=== PATIENT | male | born 1955 | race Caucasian/White ===

== ENCOUNTER → 2023-11-22 08:58 | Outpatient (REF) | payer MEDICARE, OTHER, SELFPAY | LOC: DHCBC MAIN 08:58 | PROVIDERS: ATTENDING PHYSICIAN Internal Medicine; FAMILY PHYSICIAN Internal Medicine | DX: Z95.2 Presence of prosthetic heart valve (principal); I77.810 Thoracic aortic ectasia; I25.10 Atherosclerotic heart disease of native coronary artery without angina pectoris; I31.39 Other pericardial effusion (noninflammatory) | CPT/HCPCS: 93306 ==

== ENCOUNTER → 2024-01-11 09:48 | Outpatient (REF) | payer MEDICARE, OTHER, SELFPAY ==
[2024-01-11 11:05] LABS: Platelet Count 120 10^3/uL (130-400)
== END ==
LOC: REG 09:48
PROVIDERS: ATTENDING PHYSICIAN Internal Medicine Hematology & Oncology; FAMILY PHYSICIAN Internal Medicine
DX: D69.6 Thrombocytopenia, unspecified (principal)
CPT/HCPCS: 36415; 85049

== ENCOUNTER → 2024-01-14 08:40 | Outpatient (REF) | payer MEDICARE, OTHER, SELFPAY | LOC: RAD 08:40 | PROVIDERS: ATTENDING PHYSICIAN Internal Medicine Hematology & Oncology | DX: D69.6 Thrombocytopenia, unspecified (principal) | CPT/HCPCS: 76700 ==

== ENCOUNTER 2024-02-24 10:38 | Emergency (ER) | payer MEDICARE, OTHER, SELFPAY ==
[2024-02-24 10:52] VITALS: BP 120/84
--- NOTE | 2024-02-24 12:27 | ED.GENMED ---
History of Present Illness
General
Chief Complaint: Male Genito-Urinary Symptoms
Source: patient
Exam Limitations: none
Time Seen by Provider: 02/24/24 11:48
Nursing documentation reviewed up to this point in time: agreed with
Travel History
Have you had any contact with someone who has COVID-19?: No
Do you have any symptoms of coronavirus? Fever > 100 degrees, chills, cough, shortness of breath, sore throat, loss of taste or smell, muscle aches, or headache?: No
History of Present Illness
History of Present Illness:
Patient with history of erectile dysfunction, presents to ED secondary to sudden onset of bruising noted on top of his penis, after he unattached penile pump, which was recommended by his urologist recently, this morning. Patient unsure if he did
not deflate enough prior to removal of the pump. Denies significant pain. Denies bleeding. Denies difficulty with urination. Denies direct trauma. Denies previous history of similar symptoms.
Past History
Past History
ED Past Medical History: HTN, Hypercholesterolemia and Other (Vertigo, Migraines, endocarditis)
ED Past Surgical History: None
Social History
Tobacco: Non-smoker
Alcohol: Occasional
Personal:
Living: with family
Review of Systems
Review of Systems
Allergies reviewed?: Yes
All Other Systems: ROS reviewed and negative except as documented in HPI and ROS
Constitutional: Reports no symptoms
ABD/GI: Reports no symptoms
: Reports other (penile bruising); Denies difficulty voiding
Musculoskeletal: Reports no symptoms
Skin: Reports no symptoms
Neurological: Reports no symptoms
Phy Exam
Physical Exam
Physical Exam:
Physical Exam
General: no apparent distress, not acutely ill. afebrile
Head: nc/at. eomi
Neck: supple. no meningeal signs.
Abdomen: normal bowel sounds. not tender.
: an approx 1cm diameter hematoma noted over dorsal aspect of penile shaft, without tenderness/bleeding.
Neuro: alert and oriented. no focal neurological deficits
Skin: no rash
Psychiatric: well kept. interactive and cooperative
Extremities: no edema. no calf tenderness.
Course
Vital Signs
Initial and Last Documented VS:
Initial Vital Signs
Temp Pulse Resp BP Pulse Ox
98.0 F 77 18 120/84 98
02/24/24 10:52 02/24/24 10:52 02/24/24 10:52 02/24/24 10:52 02/24/24 10:52
Last Documented Vital Signs
Temp Pulse Resp BP Pulse Ox
98.0 F 77 18 120/84 98
02/24/24 10:52 02/24/24 10:52 02/24/24 10:52 02/24/24 10:52 02/24/24 10:52
MDM/Problems Addressed
MDM/Problems Addressed:
Discussed with oncall urologist, , who feels that patient can be discharged home, with outpatient consultation with his primary urologist, Dr. Santacruz, within 1 to 2 weeks. Advised that patient does not utilize penile pump until
reevaluation. Patient otherwise is afebrile and appears comfortable at time of discharge. Patient expresses understanding at time of discharge.
*Critical Care Note
Total Time (30-74mins, 75-104mins- exclusive of procedures): Not Applicable
ED Attending Note
-
Portions of this chart may have been created with voice recognition software.� Occasional wrong word or��sound alike� substitutions may have occurred due to the inherent limitations of voice recognition software.
Discharge Plan
Departure
Patient Disposition: Home (Routine Discharge)
Date of Disposition: 02/24/24
Time of Disposition: 12:27
Patient with high blood pressure during this ER visit?: Yes
Discharge Problem:
Contusion of penis
Instructions: Contusion
Prescriptions:
No Action
sumatriptan succinate 50 MG tablet
100 mg PO PRN PRN (Reason: Migraines)
Patient Comments:
not taken in 5 years.
atorvastatin 10 MG tablet
20 mg PO Q48H
meclizine 25 MG tablet
12.5 mg PO TID PRN (Reason: MIGRAINE)
Patient Comments:
pt states he hasn't taken in 3 years
aspirin 81 MG tablet,chewable
81 mg PO Q48H
multivitamin 1 EACH tablet
1 ea PO DAILY
fluticasone propionate 1 SPRAY spray,suspension
2 spray intranasal HS
Vitamin D3 Complete 1 EACH tablet
1 ea PO DAILY
Lupron Depot
1 dose IM [id number]
acetazolamide 250 mg Tablet
375 mg PO DAILY
vitamin B complex Capsule
1 cap PO DAILY
cranberry 450 mg Tablet
450 mg PO BID
Gas-X
1 tab PO PRN PRN (Reason: gas)
Metamucil
3 tsp PO DAILY
potassium chloride [Klor-Con M20] 20 mEq Tablet,Er Particles/Crystals
10 meq PO DAILY Qty: 5 2RF
furosemide 40 mg Tablet
20 mg PO DAILY Qty: 5 2RF
sennosides-docusate sodium [Senna Plus] 8.6-50 mg Tablet
1 tab PO Q12 Qty: 15 1RF
pantoprazole 40 mg Tablet,Delayed Release (Dr/Ec)
40 mg PO DAILY Qty: 30 0RF
metoprolol tartrate 25 mg Tablet
25 mg PO BID Qty: 60 2RF
acetaminophen 325 mg Tablet
650 mg PO Q4HPRN PRN (Reason: mild pain,headache,temp >101F ) Qty: 0 0RF
tramadol 50 mg Tablet
50 mg PO Q8HPRN PRN (Reason: moderate to severe pain) Qty: 10 0RF
amlodipine [Norvasc] 5 MG tablet
5 mg PO DAILY Qty: 30 0RF
warfarin 2 mg tablet
2 mg PO DAILY Qty: 20 2RF
Rx Instructions:
take as instructed based on PT/INR after labs drawn
warfarin 1 mg tablet
1 mg PO DAILY Qty: 30 2RF
Rx Instructions:
take as instructed after PT/INR resulted
Referrals:
Frances Lamb MD [Family Provider] -
Murphy Santacruz MD [Active] -
Activity Restrictions/Additional Instructions:
As discussed, please follow-up with your urologist for reevaluation in 1 to 2 weeks.
Interventions
Interventions:
ED- Fall Risk Assessment Last Done: 02/24/24 12:41
*ED COVID-19 Vaccine History Last Done: 02/24/24 10:52
*Nursing Disposition Last Done: 02/24/24 12:47
ED-Male Genitourinary Assessment Last Done: 02/24/24 12:40
Discharge Date and Time
Discharge Date/Time: 02/24/24 12:48
Print Language: KAZAKH
== END 2024-02-24 12:48 | disposition home or self-care (01) ==
LOC: EMR 10:38
PROVIDERS: EMERGENCY PHYSICIAN Emergency Medicine; FAMILY PHYSICIAN Internal Medicine
DX: S30.21XA Contusion of penis, initial encounter (principal); X58.XXXA Exposure to other specified factors, initial encounter; N52.9 Male erectile dysfunction, unspecified; I10 Essential (primary) hypertension; E78.00 Pure hypercholesterolemia, unspecified
CPT/HCPCS: 99282

== ENCOUNTER 2024-05-24 07:47 | Emergency (ER) | payer MEDICARE, OTHER, SELFPAY ==
[2024-05-24 07:51] VITALS: BP 169/93
[2024-05-24 08:03] VITALS: BMI 27.1
--- NOTE | 2024-05-24 08:20 | ED.GENMED ---
History of Present Illness
General
Chief Complaint: Chest Pain
Time Seen by Provider: 05/24/24 08:02
History of Present Illness
History of Present Illness:
Patient presents to the emergency department with left-sided shoulder pain. Notes that he has been working out frequently at the gym. He is unsure if this is related to his weightlifting sessions. Pain is in the left upper chest and left
shoulder. It is not exertional. He sometimes has tingling that goes down into the left arm. Note symptoms started last after a difficult treadmill session. Denies any dyspnea. Denies any leg swelling. Denies any abdominal pain or back
pain. Pain is worse with palpation
Past History
Past History
ED Past Medical History: HTN, Hypercholesterolemia and Other (Vertigo, Migraines, endocarditis)
ED Past Surgical History: None
Social History
Tobacco: Non-smoker
Alcohol: Occasional
Personal:
Living: with family
Phy Exam
Physical Exam
Physical Exam:
GENERAL APPEARANCE: NAD, well developed/ well nourished
EYES lids/conjunctiva normal
EARS/NOSE/THROAT Mucous membranes moist
HEAD/NECK normocephalic atraumatic, neck is supple.
RESPIRATORY respiratory effort normal, speaks in full sentences, no accessory muscle use. Lungs clear to auscultation without rhonchi, wheezes, rales
CARDIAC Regular rate and rhythm, no edema.
ABDOMINAL Soft, ND/NT. No pulsatile masses on exam
MUSCLES/EXTREMITIES No abnormal range of motion, no swelling. Tenderness to palpation at left anterior shoulder. Full range of motion of shoulder. Strong peripheral pulses and sensation throughout all extremities.
SKIN Warm, pink and dry. No rashes
NEUROLOGICAL Speech is clear and appropriate. Normal level of consciousness. 5/5 strength in all extremities.
PSYCH Normal mood and affect. Judgement/competence is appropriate
Scores
Heart Score for Chest Pain Patients
STEMI patient?: No
History: Slightly or Non-Suspicious
ECG: Normal
Age: >/= 65 years
Risk Factors: 1 or 2 Risk Factors
Troponin: </= Normal Limit
Heart Score for Chest Pain Patients: 3
Heart Score Risk: 2.5% MACE over next 6 weeks
Course
Orders/Labs/Results
Orders:
Orders
05/24/24 07:50
ECG [Electrocardiogram (*1)] Urgent
Reason for Study: Chest Pain
EKG- Treatment ONCE
05/24/24 08:14
CR Chest - 2 Views Urgent
Comment:
Reason For Exam: chest pain
Pulse Ox/cont/shift [RESP] Stat
Quantity: 1
05/24/24 08:29
Basic Metabolic Panel Urgent
Complete Blood Count/With Diff Urgent
Troponin I Urgent
Abnormal Lab Results
05/24/24
08:29
WBC 4.4 L 10^3/uL
(4.8-10.8)
RBC 4.69 L 10^6/uL
(4.70-6.10)
MPV 10.5 H fL
(7.4-10.4)
Absolute Lymphs (auto) 1.1 L 10^3/uL
(1.2-3.4)
Monocytes % 11.7 H %
(1.7-9.3)
BUN 28 H mg/dl
(9-20)
Glucose 100 H mg/dl
(70-99)
05/24/24 08:29
05/24/24 08:29
Vital Signs
Initial and Last Documented VS:
Initial Vital Signs
Temp Pulse Resp BP Pulse Ox
98.1 F 80 16 169/93 95
05/24/24 07:51 05/24/24 07:51 05/24/24 07:51 05/24/24 07:51 05/24/24 07:51
Last Documented Vital Signs
Temp Pulse Resp BP Pulse Ox
98.1 F 69 9 118/83 99
05/24/24 07:51 05/24/24 09:41 05/24/24 09:41 05/24/24 09:42 05/24/24 08:30
*Critical Care Note
Total Time (30-74mins, 75-104mins- exclusive of procedures): Not Applicable
ED Attending Note
ED Attending Note
ED Attending Note:
Patient presents to the emergency department with atypical left sided chest pain/shoulder pain. Clinically suggestive of musculoskeletal pain given worse with palpation occurred after working out. Pain has been ongoing for 6 days now. He has no
ischemic changes on his EKG. Troponin is negative greater than 6 hours from onset of pain. Doubt cardiac ischemia as the cause. There is no pleuritic chest pain or shortness of breath or tachycardia or hypoxia to suggest pulmonary embolism.
Chest x-ray is negative for acute process. Doubt aortic pathology given normal mediastinal silhouette, well appearance, hemodynamic stability and normal pulse exam. Discussed close follow-up with patient's recycle driver for outpatient stress
testing. Patient placed for close follow-up in discharge. Heart score is 3.
-
Portions of this chart may have been created with voice recognition software.� Occasional wrong word or��sound alike� substitutions may have occurred due to the inherent limitations of voice recognition software.
Discharge Plan
Departure
Patient Disposition: Home (Routine Discharge)
Date of Disposition: 05/24/24
Time of Disposition: 09:25
Patient with high blood pressure during this ER visit?: Yes
Discharge Problem:
Anterior shoulder pain
Instructions: Chest Pain CBC Follow Up
Prescriptions:
No Action
atorvastatin 10 MG tablet
20 mg PO Q48H
aspirin 81 MG tablet,chewable
81 mg PO Q48H
vitamin B complex Capsule
1 cap PO DAILY
cranberry 450 mg Tablet
450 mg PO DAILY
sumatriptan succinate 100 mg Tablet
100 mg PO DAILYPRN PRN (Reason: migraine)
meclizine 12.5 mg Tablet
12.5 mg PO TIDPRN PRN (Reason: migraine)
Theragen Tablet
1 tab PO DAILY
triamterene-hydrochlorothiazid 37.5-25 mg Capsule
1 cap PO DAILY
famotidine [Pepcid] 20 mg Tablet
20 mg PO DAILY
Patient Comments:
05/24/24: According to patient, to take for 2 weeks, started on 05/19/24.
metoprolol succinate 25 mg Tablet Extended Release 24 Hr
25 mg PO DAILY
fluticasone propionate [Flonase] 50 mcg/actuation [place],Suspension
2 spray INTRANASAL HS
Vitamin D3 Complete 18 mg iron-800 mcg-150 mg Tablet
1 tab PO DAILY
Referrals:
Queta Haines MD [Family Provider] -
Activity Restrictions/Additional Instructions:
Please follow-up in the next 1 to 2 days with your recycle driver for close outpatient stress testing. Return to the emergency department with new or worsening symptoms.
Interventions
Interventions:
*Risk Screen - Suicide Last Done: 05/24/24 07:55
*General Assessment Last Done: 05/24/24 07:55
*Neglect/Abuse Screening Last Done: 05/24/24 07:55
ED- Fall Risk Assessment Last Done: 05/24/24 08:06
*ED COVID-19 Vaccine History Last Done: 05/24/24 08:04
*Nursing Disposition Last Done: 05/24/24 09:56
ED- Cardiac Assessment Last Done: 05/24/24 08:06
Discharge Date and Time
Discharge Date/Time: 05/24/24 09:56
Print Language: SWEDISH
[2024-05-24 08:27] VITALS: BP 112/96
[2024-05-24 08:44] LABS: % Basophils 1.4 % (0-2); % Eosinophils 5.7 % (0-6); % Immature Granulocytes 0.2 % (0-0.5); % Lymphocytes 25.7 % (20.5-51.1); % Monocytes 11.7 % (1.7-9.3); % Neutrophils 55.3 % (42.2-75.2); Absolute Basophils 0.1 10^3/uL (0-0.2); Absolute Eosinophils 0.3 10^3/uL (0-0.7); Absolute Lymphocytes 1.1 10^3/uL (1.2-3.4); Absolute Monocytes 0.5 10^3/uL (0.1-0.6); Absolute Neutrophils 2.4 10^3/uL (1.4-6.5); Hematocrit 41.1 % (39.0-52.0); Hemoglobin 14.4 g/dL (13.0-18.0); Mean Corpuscular Hgb 30.7 pg (27.0-31.0); Mean Corpuscular Volume 87.6 fL (80.0-94.0); Mean Platelet Volume 10.5 fL (7.4-10.4); Nucleated Red Blood Cells % 0 % (-); Platelet Count 135 10^3/uL (130-400); Red Blood Cell Count 4.69 10^6/uL (4.70-6.10); Red Cell Dist. Width 12.9 % (11.5-14.5); White Blood Cell Count 4.4 10^3/uL (4.8-10.8)
[2024-05-24 09:08] VITALS: BP 118/88
[2024-05-24 09:08] LABS: Troponin I < 0.012 ng/ml
[2024-05-24 09:18] LABS: Blood Urea Nitrogen 28 mg/dl (9-20); Calcium 9.5 mg/dl (8.4-10.2); Carbon Dioxide 29 mmol/L (22-30); Chloride 101 mmol/L (98-107); Estimated Creatinine Clearance 59 ml/min; Glucose 100 mg/dl (70-99); Potassium 4.4 mmol/L (3.5-5.1); Sodium 138 mmol/L (135-145); eGFR > 60.00
[2024-05-24 09:42] VITALS: BP 118/83
== END 2024-05-24 09:56 | disposition home or self-care (01) ==
LOC: EMR 07:47
PROVIDERS: EMERGENCY PHYSICIAN Emergency Medicine; FAMILY PHYSICIAN Family Medicine
DX: M25.512 Pain in left shoulder (principal); R07.89 Other chest pain; R20.2 Paresthesia of skin; I10 Essential (primary) hypertension; E78.00 Pure hypercholesterolemia, unspecified; G43.909 Migraine, unspecified, not intractable, without status migrainosus; Z79.82 Long term (current) use of aspirin; Z88.8 Allergy status to other drugs, medicaments and biological substances
CPT/HCPCS: 99284; 94760; 71046; 80048; 84484; 85025; 93005

== ENCOUNTER → 2024-06-07 08:34 | Outpatient (REF) | payer MEDICARE, OTHER, SELFPAY | LOC: HWRAD 08:34 | PROVIDERS: ATTENDING PHYSICIAN Nurse Practitioner; FAMILY PHYSICIAN Family Medicine | DX: I77.810 Thoracic aortic ectasia (principal) | CPT/HCPCS: 71275; Q9967 ==

== ENCOUNTER 2025-02-06 16:48 | Emergency (ER) | payer MEDICARE, OTHER, SELFPAY ==
[2025-02-06 17:07] VITALS: BP 149/95
[2025-02-06] MEDS: BRETHINE 5 MG PO (17:58)
[2025-02-06 18:00] VITALS: BMI 27.4
--- NOTE | 2025-02-06 18:25 | CON.MD ---
Consultation - Medical
-
see dictated note
pt with hx of prostate ca and ED
received first trimix inj in our office today
came in to ER with prolonged erection/priapism
under sterile conditions, right corporal body was aspirated- then inj with 1cc of standard phenyl mix
prompt detum occured
plan
will observe in ER- in no recurrent erection over the next 60 minutes- home on keflex and f/u with dr gardner
[2025-02-06 19:00] VITALS: BP 118/87
--- NOTE | 2025-02-06 19:02 | ED.GENMED ---
History of Present Illness
General
Chief Complaint: Male Genito-Urinary Symptoms
Source: patient
Time Seen by Provider: 02/06/25 17:33
History of Present Illness
History of Present Illness:
69-year-old male presents to the emergency room complaining of a erection which has lasted for over 5 hours. Patient was seen by urology today and was prescribed Tri-Mix as an injectable treatment for erectile dysfunction. Patient had his first
injection at the office when he was instructed on its use. Patient developed an erection shortly after and unfortunate this has persisted until his arrival here in the emergency room. Patient was instructed to use pseudoephedrine 30 mg every 1/2
hour up to 4 doses. His pharmacy did not have 30 mg tablet so he took 120 mg long-acting tablet. This had no effect. Patient was using ice without effect either. His penis is beginning to have discomfort. Patient's primary urologist is
Neeta.
Past History
Past History
ED Past Medical History: HTN, Hypercholesterolemia and Other (Vertigo, Migraines, endocarditis)
ED Past Surgical History: None
Social History
Tobacco: Non-smoker
Alcohol: Occasional
Personal:
Living: with family
Phy Exam
Physical Exam
Physical Exam:
General: Awake, Alert, Oriented X3. No acute distress.
Vitals: unremarkable
Head: Atraumatic
Eyes: Pupils equal, EOMI
Neck: Trachea midline
Lungs: Clear and equal b/l
Heart: Regular rate, no murmurs
Abd: Soft, Nontender, No pulsatile mass
Genitalia: Erect penis which is somewhat tender to palpation. Corpus cavernosum engorged and firm bilaterally
Neuro: Nonfocal
Skin: Warm, dry, no rash
Extremities: pulses equal b/l, no edema
Course
Orders/Labs/Results
Orders:
Orders
02/06/25 17:48
Terbutaline Sulfate [Brethine] 5 mg PO NOW STA
02/06/25 17:50
Phenylephrine [Vazquez-Synephrine] 5 mg 0.9% Sodium Chloride 50 ml [Nss] 19.5 ml Syringe [Syringe Non-Pump] 0 ml INTRACAVER ONCE PRN
02/06/25 19:02
Cephalexin Monohydrate [Keflex] 500 mg PO NOW STA
Vital Signs
Initial and Last Documented VS:
Initial Vital Signs
Temp Pulse Resp BP Pulse Ox
97.6 F 88 16 149/95 98
02/06/25 17:07 02/06/25 17:07 02/06/25 17:07 02/06/25 17:07 02/06/25 17:07
Last Documented Vital Signs
Temp Pulse Resp BP Pulse Ox
97.6 F 102 18 120/94 99
02/06/25 17:07 02/06/25 20:00 02/06/25 20:00 02/06/25 20:00 02/06/25 20:00
MDM/Problems Addressed
Differential Diagnosis Includes:
Medication induced priapism
MDM/Problems Addressed:
Patient given a dose of terbutaline 5 mg here pending urology evaluation. Dr. Wright was quickly available and came to the bedside and performed an aspiration followed by instillation of phenylephrine. Patient had rapid improvement. I personally
reevaluated the patient about an hour after Dr. Wright intervene and the patient has complete detumescence.
*Pulse Oximetry
Patient hypoxic: no
*Critical Care Note
Total Time (30-74mins, 75-104mins- exclusive of procedures): Not Applicable
ED Attending Note
-
Portions of this chart may have been created with voice recognition software.� Occasional wrong word or��sound alike� substitutions may have occurred due to the inherent limitations of voice recognition software.
Discharge Plan
Departure
Patient Disposition: Home (Routine Discharge)
Date of Disposition: 02/06/25
Time of Disposition: 20:06
Patient with high blood pressure during this ER visit?: No
Condition: Good
Discharge Problem:
Priapism
Instructions: Priapism
Prescriptions:
New
cephalexin 500 mg capsule
500 mg PO BID Qty: 10 0RF
No Action
atorvastatin 10 MG tablet
20 mg PO Q48H
aspirin 81 MG tablet,chewable
81 mg PO Q48H
vitamin B complex Capsule
1 cap PO DAILY
cranberry 450 mg Tablet
450 mg PO DAILY
sumatriptan succinate 100 mg Tablet
100 mg PO DAILYPRN PRN (Reason: migraine)
meclizine 12.5 mg Tablet
12.5 mg PO TIDPRN PRN (Reason: migraine)
Theragen Tablet
1 tab PO DAILY
triamterene-hydrochlorothiazid 37.5-25 mg Capsule
1 cap PO DAILY
famotidine [Pepcid] 20 mg Tablet
20 mg PO DAILY
Patient Comments:
05/24/24: According to patient, to take for 2 weeks, started on 05/19/24.
metoprolol succinate 25 mg Tablet Extended Release 24 Hr
25 mg PO DAILY
fluticasone propionate [Flonase] 50 mcg/actuation [place],Suspension
2 spray INTRANASAL HS
Vitamin D3 Complete 18 mg iron-800 mcg-150 mg Tablet
1 tab PO DAILY
Referrals:
Murphy Santacruz MD [Active] -
Queta Haines MD [Family Provider] -
Activity Restrictions/Additional Instructions:
Please follow-up with Dr. Santacruz to discuss next steps as far as treatment for erectile dysfunction. We have sent a prescription for Keflex, an antibiotic, for you take twice a day for next days. Return for persistent erection or any concerns.
Interventions
Interventions:
*Risk Screen - Suicide Last Done: 02/06/25 17:07
*General Assessment Last Done: 02/06/25 17:07
*Neglect/Abuse Screening Last Done: 02/06/25 17:29
*ED- Fall Risk Assessment Last Done: 02/06/25 17:29
*ED COVID-19 Vaccine History Last Done: 02/06/25 17:07
*Nursing Disposition Last Done: 02/06/25 20:28
ED-Male Genitourinary Assessment Last Done: 02/06/25 17:29
Discharge Date and Time
Discharge Date/Time: 02/06/25 20:28
Print Language: ESTONIAN
[2025-02-06] MEDS: KEFLEX 500 MG PO (19:28)
[2025-02-06 20:00] VITALS: BP 120/94
== END 2025-02-06 20:28 | disposition home or self-care (01) ==
LOC: EMR 16:48
PROVIDERS: EMERGENCY PHYSICIAN Emergency Medicine; FAMILY PHYSICIAN Family Medicine; OTHER PHYSICIAN Specialist
DX: N48.30 Priapism, unspecified (principal); I10 Essential (primary) hypertension; N52.9 Male erectile dysfunction, unspecified; E78.00 Pure hypercholesterolemia, unspecified; G43.909 Migraine, unspecified, not intractable, without status migrainosus; H81.09 Meniere's disease, unspecified ear; I38 Endocarditis, valve unspecified; Z95.2 Presence of prosthetic heart valve; Z85.46 Personal history of malignant neoplasm of prostate; Z79.82 Long term (current) use of aspirin; Z90.79 Acquired absence of other genital organ(s); Z88.8 Allergy status to other drugs, medicaments and biological substances
CPT/HCPCS: 10160; 99284

== ENCOUNTER 2025-03-17 23:06 | Inpatient (IN) | payer MEDICARE, OTHER, SELFPAY ==
[2025-03-17] VITALS (7 sets, daily range): BP systolic 109–165; BP diastolic 80–104; BMI 27.0; BMI 27.3
[2025-03-17 20:42] LABS: % Basophils 0.8 % (0-2); % Eosinophils 5.8 % (0-6); % Immature Granulocytes 0.2 % (0-0.5); % Lymphocytes 26.4 % (20.5-51.1); % Monocytes 10.4 % (1.7-9.3); % Neutrophils 56.4 % (42.2-75.2); Absolute Basophils 0.1 10^3/uL (0-0.2); Absolute Eosinophils 0.4 10^3/uL (0-0.7); Absolute Lymphocytes 1.7 10^3/uL (1.2-3.4); Absolute Monocytes 0.7 10^3/uL (0.1-0.6); Absolute Neutrophils 3.6 10^3/uL (1.4-6.5); Hematocrit 44.7 % (39.0-52.0); Hemoglobin 15.7 g/dL (13.0-18.0); Mean Corp Hgb Conc. 35.1 g/dL (33.0-37.0); Mean Corpuscular Hgb 30.6 pg (27.0-31.0); Mean Corpuscular Volume 87.1 fL (80.0-94.0); Nucleated Red Blood Cells % 0 % (-); Platelet Count 140 10^3/uL (130-400); Red Blood Cell Count 5.13 10^6/uL (4.70-6.10); Red Cell Dist. Width 12.9 % (11.5-14.5); White Blood Cell Count 6.4 10^3/uL (4.8-10.8)
[2025-03-17 20:58] LABS: ALT (SGPT) 23 U/L (0-50); AST (SGOT) 36 U/L (17-59); Albumin 4.7 g/dl (3.5-5.0); Alkaline Phosphatase 62 U/L (38-126); Blood Urea Nitrogen 23 mg/dl (9-20); Calcium 9.7 mg/dl (8.4-10.2); Carbon Dioxide 31 mmol/L (22-30); Chloride 102 mmol/L (98-107); Glucose 111 mg/dl (70-99); Potassium 4.3 mmol/L (3.5-5.1); Sodium 139 mmol/L (135-145); Total Bilirubin 1.1 mg/dl (0.2-1.3); Total Protein 7.5 g/dl (6.3-8.2); eGFR 59.84
[2025-03-17 21:01] LABS: Troponin I < 0.012 ng/ml
--- NOTE | 2025-03-17 21:16 | ED.GENMED ---
History of Present Illness
General
Chief Complaint: Chest Pain
Time Seen by Provider: 03/17/25 20:36
History of Present Illness
History of Present Illness:
69 yo male presents for evaluation of multiple near syncopal events that have occurred today. Each event has been brief lasting 10 to 15 seconds, unprovoked by any type of exertion or activity. He does note that while on the treadmill earlier
today he had a episode of left-sided chest discomfort that has not fully resolved as of yet. Denies any fever, shortness of breath, nausea, or vomiting. He does take metoprolol and took it this morning. Last echocardiogram was in November showing
adequate positioning of bioprosthetic aortic and mitral valves, normal biventricular size and systolic function. Last cardiac cath was October 2022 showing a 20 to 30% lesion in the proximal LAD with otherwise unremarkable coronary arteries.
Past History
Past History
ED Past Medical History: HTN, Hypercholesterolemia and Other (Vertigo, Migraines, endocarditis)
ED Past Surgical History: None
Social History
Tobacco: Non-smoker
Alcohol: Occasional
Personal:
Living: with family
Review of Systems
Review of Systems
Allergies reviewed?: Yes
All Other Systems: ROS reviewed and negative except as documented in HPI and ROS
Phy Exam
Physical Exam
Physical Exam:
GEN: Well appearing, NAD, WDWN
HEENT: Oral mucosa moist, no scleral icterus
Cardiac: Regular rate and rhythm, no murmur
Lung: No respiratory distress, no tachypnea, lungs clear to auscultation bilaterally
MSK: No gross deformity or injuries
Skin: Good color, no pallor or jaundice, no rashes
Neuro: AO x3, moves all extremities freely
Psych: Calm, cooperative
Scores
Heart Score for Chest Pain Patients
STEMI patient?: Not applicable
Course
Orders/Labs/Results
Orders:
Orders
03/17/25 Dinner
Regular
At Your Request: Full Participation
03/17/25 20:10
ECG [Electrocardiogram (*1)] Urgent
Reason for Study: Atrial Fibrillation
EKG- Treatment ONCE
03/17/25 20:29
Complete Blood Count/With Diff Urgent
Comprehensive Metabolic Panel Urgent
Troponin I Urgent
03/17/25 21:13
0.9% Sodium Chloride 1000 ml [Nss] 1,000 ml IV BOLUS
03/17/25 21:43
Electrocardiogram (*1) Urgent
Reason for Study: Vertigo / Dizzy
EKG- Treatment ONCE
03/17/25 21:59
Atropine Sulfate [Atropine 0.1 mg/ml Syringe] 1 mg .ROUTE .STK-MED ONE
03/17/25 22:30
Admit/Transfer Patient As Directed
Co-Sign Provider:
Level of Care: Inpatient admission
Assign to:: [facility]
Physician / Group: mona
Diagnosis: heart block
Reason for Hospitalization: heart block
Expected length of stay greater than two midnights?: Yes
ELOS- Estimated Length of Stay in days: 2
I certify the patient meets the requirements for IP care: Yes
Code Status As Directed
Resuscitation Status: Full Code
PRN Pain Medication Management As Directed
May give lesser potent ordered pain med per pt: Yes
preference::
Protocol:: Medication orders for pain may be administered in a
manner that supports deferring to patient preference
when the pt is:
- Requesting an ordered lesser potent pain medication.
Least to most potent pain medications are defined
as: acetaminophen < NSAID < tramadol < opioids
(morphine, oxycodone, hydromorphone).
- Requesting a lesser dose of the same medication IF
ORDERED.
- Requesting a less intrusive route of administration
if both routes are prescribed by the provider (PO <
IV).
05/31/25 23:00
Flush (0.9% Sodium Chloride) [Flush (Nss)] See Dose Instructions IV PER PROTOCOL
03/17/25 23:35
Ondansetron Injectable [Zofran] 4 mg IV Q6HPRN PRN
03/17/25 23:35
CARDIOLOGY CONSULT Routine
Consulting Provider: Lida Gibson
Was physician already notified: Yes
Activity As Directed
Activity Level: As Tolerated
Vital Signs As Directed
Frequency: Per unit guidelines
DX Deep Vein Thrombosis Video Routine
03/18/25 06:00
Complete Blood Count/With Diff IN AM
Comprehensive Metabolic Panel IN AM
03/18/25 08:00
Heparin 5,000 units SC Q12
03/18/25 22:00
Famotidine [Pepcid] 20 mg PO HS
Abnormal Lab Results
03/17/25
20:29
Absolute Monos (auto) 0.7 H 10^3/uL
(0.1-0.6)
Monocytes % 10.4 H %
(1.7-9.3)
Carbon Dioxide 31 H mmol/L
(22-30)
BUN 23 H mg/dl
(9-20)
Glucose 111 H mg/dl
(70-99)
03/17/25 20:29
03/17/25 20:29
Vital Signs
Initial and Last Documented VS:
Initial Vital Signs
Temp Pulse Resp BP Pulse Ox
98.1 F 75 18 165/104 97
03/17/25 20:14 03/17/25 20:14 03/17/25 20:14 03/17/25 20:14 03/17/25 20:14
Last Documented Vital Signs
Temp Pulse Resp BP Pulse Ox
98.9 F 92 16 107/86 96
03/17/25 23:36 03/18/25 01:30 03/17/25 23:36 03/18/25 01:00 03/18/25 00:56
MDM/Problems Addressed
MDM/Problems Addressed:
69-year-old male presents with multiple near syncopal events. He was found on telemetry to have intermittent heart block, cardiology was consulted, pacer pads were placed and atropine was kept at the bedside. He will be admitted to the [facility] medical
service for further observation and further cardiac workup
*Critical Care Note
Total Time (30-74mins, 75-104mins- exclusive of procedures): 30 minutes
comment:
Critical care time: 30 minutes
Critical care time was exclusive of: Separately billable procedures, treating other patients, and teaching time
Critical care was necessary to treat or prevent imminent or life-threatening deterioration of the following conditions: Complete heart block
Critical care time spent personally by me on the following activities:
[x] Review of old charts
[x] Obtaining history from patient or surrogate
[x] Ordering and review of the laboratory studies
[x] Ordering and review of radiographic studies
[x] Ordering and performing treatments and interventions
[x] Patient patient's response to treatment
[x] Development of treatment plan with patient or surrogate
ED Attending Note
-
Portions of this chart may have been created with voice recognition software.� Occasional wrong word or��sound alike� substitutions may have occurred due to the inherent limitations of voice recognition software.
Discharge Plan
Departure
Patient Disposition: Admit
Date of Disposition: 03/17/25
Time of Disposition: 22:01
Admit to: [facility]
Presentation/result/management discussed w/ accepting MD/DO: Hospitalist
Discharge Problem:
Intermittent complete heart block
Interventions
Interventions:
*Risk Screen - Suicide Last Done: 03/17/25 20:14
*General Assessment Last Done: 03/17/25 20:14
*Neglect/Abuse Screening Last Done: 03/17/25 20:14
*ED- Fall Risk Assessment Last Done: 03/17/25 22:42
*ED COVID-19 Vaccine History Last Done: 03/17/25 22:42
*Nursing Disposition Last Done: 03/17/25 23:37
ED- Cardiac Assessment Last Done: 03/17/25 21:21
ED- Neurological Assessment Last Done: 03/17/25 21:21
ED- Pulmonary Assessment Last Done: 03/17/25 21:21
ED Swallowing Screen Last Done: 03/17/25 21:21
Discharge Date and Time
Discharge Date/Time: 03/17/25 23:38
[2025-03-17] MEDS: NSS 1000 IV (21:26)
--- NOTE | 2025-03-17 22:34 | HPS.HSE ---
Family Physician
-
Family Physician: Queta Haines MD
Chief Complaint
-
dizziness
History of Present Illness
69-year-old male past medical history of aortic valve replacement, mitral valve replacement, CAD, hypertension, hyperlipidemia, migraines, M�ni�re's disease, endocarditis, prostate cancer status post radical perineal prostatectomy with radiation,
hemorrhoids status post hemorrhoidectomy, presenting with dizziness and near syncope. He woke up this morning and his vision was yellow and black and felt dizzy. The same thing happened shortly afterwards when he was walking his dog. He had a
chest ache later in the day which is since resolved.
At this time he does have some light dizziness. Denies any chest pain or shortness of breath. He has chills. He feels nauseous with some abdominal discomfort.
He underwent aortic valve and mitral valve replacement 2022. He had his metoprolol dose decreased from twice a day to once a day approximately 8 months ago for dizziness with improvement in his symptoms.
He denies smoking or alcohol use.
His brother of cardiac arrest. His father had stroke.
Medical History
Past Medical History
Past Medical History: Reports Other (aortic valve replacement, mitral valve replacement, CAD, hypertension, hyperlipidemia, migraines, M�ni�re's disease, endocarditis, prostate cancer status post radical perineal prostatectomy with radiation,
hemorrhoids status post hemorrhoidectomy,)
Past Surgical History: Reports Other (Radical perineal prostatectomy, aortic valve replacement, mitral valve replacement, hemorrhoidectomy)
Social History
Tobacco: Non-smoker
Alcohol: None
Drug: None
Family History
Family History: Not pertinent
Allergies / Home Medications
Allergies reflects when Allergies were last updated in [facility].
Home Medications with original date entered in [facility]
Allergy/Medication List:
Allergies
Allergy/AdvReac Type Severity Reaction Status Date / Time
lisinopril Allergy dizziness Verified 02/06/25 17:47
Home Medications
aspirin 81 mg chewable tablet 81 mg PO Q48H Blood clot prevention/tx 01/18/18
atorvastatin 10 mg tablet 20 mg PO Q48H High cholesterol 01/18/18
cranberry fruit 450 mg tablet (cranberry) 450 mg PO DAILY 10/28/22
vitamin B complex 1 cap PO DAILY 10/28/22
famotidine 20 mg tablet (Pepcid) 20 mg PO DAILY 05/24/24
fluticasone propionate 50 mcg/actuation nasal spray,suspension 2 spray intranasal HS 05/24/24
meclizine 12.5 mg tablet 12.5 mg PO TIDPRN PRN migraine 05/24/24
metoprolol succinate 25 mg tablet,extended release 24 hr 25 mg PO DAILY 05/24/24
multivit with [id number]-#190herbal 18 mg iron-800 mcg-150 mg tablet (Vitamin D3 Complete) 1 tab PO DAILY 05/24/24
sumatriptan succinate 100 mg tablet 100 mg PO DAILYPRN PRN migraine 05/24/24
therapeutic multivitamin 1 tab PO DAILY 05/24/24
triamterene 37.5 mg-hydrochlorothiazide 25 mg capsule 1 cap PO DAILY 05/24/24
cephalexin 500 mg capsule 500 mg PO BID #10 caps 02/06/25
Review of Systems
-
History Source: Patient
A 12 point ROS was completed and negative except as noted: Yes
Constitutional: Reports No Symptoms
EENT: Reports No Symptoms
Respiratory: Reports See HPI
Cardiac: Reports See HPI
Abdomen/GI: Reports No Symptoms
: Reports No Symptoms
Musculoskeletal: Reports No Symptoms
Skin: Reports No Symptoms
Neurological: Reports No Symptoms
Endocrine: Reports No Symptoms
Hematologic/Lymphatic: Reports No Symptoms
Psych: Reports No Symptoms
Physical Exam
Vital Signs
Vital Signs
Temp Pulse Resp BP Pulse Ox
98.1 F 86 13 134/103 99
03/17/25 20:14 03/17/25 22:30 03/17/25 22:30 03/17/25 22:01 03/17/25 22:30
Physical Exam
General: Well Developed, Well Nourished and No Apparent Distress
HEENT: NormoCephalic, Moist mucous membranes and Atraumatic
Respiratory: Clear
Cardiac: S1/S2 and Regular Rhythm; No Murmur or Rub
GI: Soft, Non Tender, Non Distended and Normal Bowel Sounds; No Organomegaly
Rectal: Deferred by Provider
Musculoskeletal: No Clubbing, No Cyanosis and No Edema
Skin: No Rash
Neuro: Nonfocal/grossly intact
Laboratory Results
-
03/17/25 20:29
03/17/25 20:29
Laboratory Results
Total Bilirubin 1.1 mg/dl (0.2-1.3) 03/17/25 20:29
AST 36 U/L (17-59) 03/17/25 20:29
ALT 23 U/L (0-50) 03/17/25 20:29
Alkaline Phosphatase 62 U/L (38-126) 03/17/25 20:29
Troponin I < 0.012 ng/ml 03/17/25 20:29
Data Reviewed
-
Lab Data: Labs Reviewed by me
Old Records: Reviewed
Impression/Plan
-
IMPRESSION:
PLAN:
# Symptomatic intermittent heart block
-Patient had 6-7-second stretch of heart block with dropped QRS complexes corresponding with symptoms on telemetry
-hemodynamically stable
- EKG shows normal sinus rhythm
-Troponin negative
- Hold metoprolol
- Cardiology consulted for pacemaker consideration
# Nausea/abdominal discomfort secondary to heart block symptoms
- Zofran, Pepcid
Aortic valve replacement
Mitral valve replacement
CAD
- Continue aspirin, statin
Essential hypertension
- Continue triamterene, hydrochlorothiazide
Hyperlipidemia
Migraine
M�ni�re's disease
History of endocarditis
Prostate cancer status post radical perineal prostatectomy with radiation
History of hemorrhoids status post hemorrhoidectomy
Full code
DVT prophylaxis�heparin
Regular diet
--- NOTE | 2025-03-17 22:51 | CON.CAR ---
Consultation
Consultation Request
Date/Time Consultation Requested: 03/17/2025
Date/Time Consultation Performed: 03/17/2025
Performing Provider: Dr. Gibson (primary supervisor border department Dr. Diallo)
Reason for Consultation: Near syncope
Medical History
-
Chief Complaint: Near syncope
History of Present Illness:
69 yo male with PMH of BAV and enterococcal endocarditis 2012, progressive AR and MR, now s/p bio-AVR and MVR 12/03/22, highly symptomatic post op fib (no DOAC unless recurrent), mildly dilated aortic root (4.3cm), HTN, dyslipidemia, prior prostate
cancer (s/p surgery and radiation), Meniere's (on dyazide) presented for evalutiaon of dizziness. He had multiple episodes throughout the day when he would feel lightheaded and see yellow and black. He had an episode while in the ED correlating to
PhaseIV HB/CHB. He is otherwise complianing of his 'meniere's' headache. Incidently he had a chest ache when on the treadmill today. It resolved on its own and didn't recurr when later walking a dog.
Past Medical History
Past Medical History: Arrhythmias (post op fib), Cancer (prostate), Valvular Disease (bav ) and Other (enodcarditis)
Past Surgical History: Cardiac (bio avr/mvr)
Social History
Tobacco: Non-Smoker
Alcohol: None
Personal:
Living: With Family
Family History
Family History: Reviewed & Not Pertinent
Allergies / Home Medications
Allergy/AdvReac Type Severity Reaction Status Date / Time
lisinopril Allergy dizziness Verified 02/06/25 17:47
�Medication �Instructions �Recorded �Confirmed �Type
aspirin 81 mg chewable tablet 81 mg PO Q48H Blood clot 01/18/18 05/24/24 History
prevention/tx
atorvastatin 10 mg tablet 20 mg PO Q48H High cholesterol 01/18/18 05/24/24 History
cranberry fruit 450 mg tablet 450 mg PO DAILY 10/28/22 05/24/24 History
(cranberry)
vitamin B complex 1 cap PO DAILY 10/28/22 05/24/24 History
famotidine 20 mg tablet (Pepcid) 20 mg PO DAILY 05/24/24 05/24/24 History
fluticasone propionate 50 2 spray intranasal HS 05/24/24 05/24/24 History
mcg/actuation nasal
spray,suspension
meclizine 12.5 mg tablet 12.5 mg PO TIDPRN PRN migraine 05/24/24 05/24/24 History
metoprolol succinate 25 mg 25 mg PO DAILY 05/24/24 05/24/24 History
tablet,extended release 24 hr
multivit with 1 tab PO DAILY 05/24/24 05/24/24 History
wlt-zccl-MQ-#190herbal 18 mg
iron-800 mcg-150 mg tablet
(Vitamin D3 Complete)
sumatriptan succinate 100 mg tablet 100 mg PO DAILYPRN PRN migraine 05/24/24 05/24/24 History
therapeutic multivitamin 1 tab PO DAILY 05/24/24 05/24/24 History
triamterene 37.5 1 cap PO DAILY 05/24/24 05/24/24 History
mg-hydrochlorothiazide 25 mg
capsule
cephalexin 500 mg capsule 500 mg PO BID #10 caps 02/06/25 Rx
Review of Systems
-
All other systems: Negative unless noted
Physical Exam
Vital Signs
Temp Pulse Resp BP Pulse Ox
98.1 F 86 13 134/103 99
03/17/25 20:14 03/17/25 22:30 03/17/25 22:30 03/17/25 22:01 03/17/25 22:30
Lab Results
03/17/25 20:29
03/17/25 20:29
Troponin I < 0.012 ng/ml 03/17/25 20:29
Physical Exam
General: Well Developed, Well Nourished and No Apparent Distress
Respiratory: Negative Wheezes, Crackles or Rhonchi
Cardiac: S1/S2, Regular Rhythm and Murmur (HSM in all areas)
GI: Soft, Non Tender and Non Distended
Musculoskeletal: No Clubbing, No Cyanosis and No Edema
Neuro: AO x 3
Impression / Plan
-
near syncope correlate to phase 4 hb/chb:
This is a high risk situation.
now in NSR with normal qrs
hold bb
pacer pads on and atropine to bedside
eventually ppm Wednesday with possible temp wire if becomes unstable--I did discuss with IC president/gm production & live experiences in case this becomes neccessary
echo first thing Wednesday am
CP: trop negative, may be linked to above
BAV s/p Bio AVR/MVR in 2022
HTN
Dilated aortic root
HLD
Prostate CA
Critical care time spent with patient at the bedsided developing a plan after reviewing date and reviewing plan with ED team, patient, and his 45 minutes.
Data:
TTE 11/22/23:
Normal biventricular size and systolic function without regional wall motion
abnormality.
Well seated #29 mm Biggs mitral valve replacement with a mean gradient of 4
mmHg.
Well seated #27 mm Biggs bioprosthetic aortic valve replacement. The
peak/mean gradients across the valve are 19/12 mmHg.
Mildly dilated ascending aorta (4.3 cm)
Compared to previous echo 03/16/23, the pericardial effusion has resolved. The
ascending aorta was not measured on the prior study.
Data Reviewed
-
EKG: Tracing Personally Visualized and interpreted (NSR ) and Discussed with Patient (Tele with phase 4 HB and CHB)
[2025-03-17] MEDS: TYLENOL 1000 MG PO (23:48)
[2025-03-18] VITALS (42 sets, daily range): BP systolic 95–135; BP diastolic 56–92; BMI 27.7
[2025-03-18] MEDS: ZOFRAN 4 MG IV ×2 (00:22→04:33)
--- NOTE | 2025-03-18 01:28 | PTCARENOTE ---
Rec'd pt as admission from ED. PT AAO*3, VSS, and Sr on TELE monitor with PVC's. Pt reports sever migraine and nausea. Tylenol and zofran given as ordered. Pt admitted with HB, pads on pt and atropine at bedside. See MAR and flowchart for full
pt care and assessment.
[2025-03-18] MEDS: NSS 500 IV (04:57)
--- NOTE | 2025-03-18 04:58 | W.PN.UPDATE ---
Update Note
Progress Note Update
0400 RN reported 8.7 sec pause. Pt was asymptomatic at that time. Shortly after RN reports another similar pause and pt was more symptomatic at that time (vision loss briefly). PT then fell asleep and had a 13.03 second pause which pt was briefly
hard to arouse, once awake pt was also symptomatic (nausea, feels like hands vibrating).
Dr padilla updated by nursing. Cath team notified by Dr padilla. Pt for temp pacer as soon as cath team arrives.
Atropine at bedside
[2025-03-18 05:00] LABS: % Basophils 0.5 % (0-2); % Eosinophils 3.6 % (0-6); % Immature Granulocytes 0.3 % (0-0.5); % Lymphocytes 30.5 % (20.5-51.1); % Monocytes 10.3 % (1.7-9.3); % Neutrophils 54.8 % (42.2-75.2); Absolute Eosinophils 0.2 10^3/uL (0-0.7); Absolute Lymphocytes 1.8 10^3/uL (1.2-3.4); Absolute Monocytes 0.6 10^3/uL (0.1-0.6); Absolute Neutrophils 3.2 10^3/uL (1.4-6.5); Hematocrit 40.7 % (39.0-52.0); Hemoglobin 14.5 g/dL (13.0-18.0); Mean Corp Hgb Conc. 35.6 g/dL (33.0-37.0); Mean Corpuscular Hgb 30.7 pg (27.0-31.0); Mean Corpuscular Volume 86.2 fL (80.0-94.0); Mean Platelet Volume 10.2 fL (7.4-10.4); Nucleated Red Blood Cells % 0 % (-); Platelet Count 134 10^3/uL (130-400); Red Blood Cell Count 4.72 10^6/uL (4.70-6.10); Red Cell Dist. Width 12.8 % (11.5-14.5); White Blood Cell Count 5.8 10^3/uL (4.8-10.8)
--- NOTE | 2025-03-18 05:54 | PTCARENOTE ---
PT with 6.8 second pause on TELE monitor. BP stable and asymptomatic. SAM Francisco notified. Additional 13.2 second pause with patient reporting vision darkening, nausea, and extreme tingling in the fingers. BP remained stable at this time.
Dr padilla notified, Cath team activated for temporary pacing wires. Pads remained on pt during this time, pt placed on supplemental 02, order for fluids rec'd (and given as ordered). Pt brought to lab instructor area on [facility]. Report given to
Kathy from lab instructor. Plan of care ongoing.
--- NOTE | 2025-03-18 06:09 | ITS.CL.PN ---
[facility] Review Nurse - Procedure Note
Procedure
Procedure Note:
TRANSVENOUS PACEMAKER REPORT
�
Date of Procedure: March 18, 2025
�
Referring: Glendy Gibson
�
PROCEDURES:
1. Temporary transvenous pacemaker via right common femoral vein
�
INDICATION: Sinus arrest
�
ACCESS: Right common femoral vein under ultrasound guidance using a micropuncture kit
�
PROCEDURE DETAIL: Once right common femoral venous access was obtained under ultrasound guidance using a micropuncture kit through modified Seldinger technique, a balloon-tipped temporary transvenous pacemaker was directed under direct fluoroscopic
guidance into the RV. Thresholds were checked with threshold less than 1 MA. Temporary transvenous pacemaker was set to backup at 40 bpm, output of 20 mA. Temporary transvenous pacemaker was sutured and secured in place.
�
CONCLUSIONS
1. Successful placement of temporary transvenous pacemaker via right common femoral vein
�
RECOMMENDATIONS
1. Chest x-ray to rule out pneumothorax and assess placement.
2. Bedrest until permanent device placed tomorrow morning.
�
Radha Anderson MD, FACC, [facility]
�
Copy to: Glendy Gibson
[2025-03-18 06:17] LABS: ALT (SGPT) 19 U/L (0-50); Albumin 3.8 g/dl (3.5-5.0); Alkaline Phosphatase 54 U/L (38-126); Blood Urea Nitrogen 20 mg/dl (9-20); Calcium 9.1 mg/dl (8.4-10.2); Carbon Dioxide 24 mmol/L (22-30); Chloride 109 mmol/L (98-107); Estimated Creatinine Clearance 63 ml/min; Glucose 99 mg/dl (70-99); Potassium 4.1 mmol/L (3.5-5.1); Sodium 139 mmol/L (135-145); Total Protein 6.3 g/dl (6.3-8.2); eGFR > 60.00
[2025-03-18 06:24] LABS: AST (SGOT) 31 U/L (17-59)
[2025-03-18 06:36] LABS: Magnesium 2.1 mg/dl (1.6-2.3)
--- NOTE | 2025-03-18 06:40 | PTCARENOTE ---
received pt from lab animal technician at 0615 s/p venous sheath transvenous pacer insertion. Pacer set to VVI 40, 20, .8. No pacing noted. NSR on tele HR 80s. BP stable. pt w/o complaints of dizzyness or lightheadedness. does complain of nausea with turns,
states its motion sickness. R fem vein venous sheath infusing KVO, R leg warm with good pulses, Venous sheath site c/d/i, scant blood around the external catheter noted, soft no hematoma. Call biggs within reach.
[2025-03-18] MEDS: TYLENOL 650 MG PO (08:01)
--- NOTE | 2025-03-18 08:13 | PTCARENOTE ---
Received patient for 7a-7p shift. Patient AAOx3, without complaints. NSR on library monitor with occasional PVCs. HR dropped to 39 at 0801, temp pacer fired, Vpacing at 40. Temp pacer settings H 40/mA 20, sensitivity 0.8 via R groin. Small amount of
blood noted in temp wire sleeve, will monitor, no hematoma noted; + pedal pulses. Out patient medications reconciled. Tylenol administered for migraine. Instructed patient on complete bedrest, keep Right leg straight. Call biggs in reach. Patient
verbalized understanding.
[2025-03-18] MEDS: LIPITOR 20 MG PO (09:16)
[2025-03-18] MEDS: LOW STRENGTH ASPIRIN 81 MG PO (09:16)
[2025-03-18] MEDS: HEPARIN 5000 UNITS SC ×2 (09:16→19:42)
[2025-03-18] MEDS: DYAZIDE 1 CAPSULE PO (09:17)
--- NOTE | 2025-03-18 09:27 | W.PN.HOSP.TC ---
Today's Communication/Plan
-
Continue current care
Assessment / Plan
Assessment / Plan
Gen-AAOx3, NAD
HEENT-NC, AT, anicteric, clear oral mm
Neck-supple
CV-reg, no M, +S1/S2
Lungs-clear B/L
Abd-soft, NT, ND
Ext-no edema
Musculoskeletal-no cyanosis, clubbing
Skin-warm and dry
Neuro-grossly non-focal
Psych-calm, cooperative
Complete heart block -transvenous pacer placed early this morning. Hold Toprol-XL. N.p.o. after midnight for pacemaker placement tomorrow.
Near syncope due to heart block.
Chest pressure -suspect due to heart block, bradycardia. Troponin negative. Chest pressure resolved.
History of [facility] valve endocarditis -2022. Requiring bioprosthetic AVR, MVR.
CAD -stable.
Essential hypertension -stable.
M�ni�re's disease
Migraine headaches
Hx prostate cancer -radical perineal prostatectomy, radiation.
Full code
Anticipated Discharge: > 48 hours
Subjective/Interval History
-
Date of Service: March 18, 2025
Patient seen and examined. No complaints.
Objective Data
-
Labs:
Laboratory Results
03/18/25
04:17
WBC 5.8
Hgb 14.5
Hct 40.7
Plt Count 134
Sodium 139
Potassium 4.1
Chloride 109 H
Carbon Dioxide 24
BUN 20
Creatinine 1.2
Glucose 99
Calcium 9.1
Total Bilirubin 1.0
AST 31
ALT 19
Alkaline Phosphatase 54
Vital Signs:
Vital Signs
Temp Pulse Resp BP Pulse Ox
98.2 F 97 11 117/87 99
03/18/25 06:21 03/18/25 09:17 03/18/25 08:15 03/18/25 09:17 03/18/25 08:53
I&O
03/17/25 03/18/25 03/19/25
06:59 06:59 06:59
Intake Total 240 / 240
Output Total 905 / 905 500 / 500
Balance -665 / -665 -490 / -490
Review of Systems
-
History Source: Patient
All other systems: Reviewed and negative
--- NOTE | 2025-03-18 11:15 | PTCARENOTE ---
Patient reassessed, assessment unchanged from previous. VSS, NSR with occasional PVCs on cardiac cath. RFV temporary pacer site with small amount of serosanguineous drainage, unchanged from previous. Temp pacer setting Hr 40/mA20. Patient's family
at bedside. Maintained on complete bedrest. Will continue to monitor.
--- NOTE | 2025-03-18 12:46 | W.PN.CD ---
Today's Communication / Plan
-
bed rest given fem vein tv pacer wire
npo p md tonight
ppm tomorrow after echo
Impression / Plan
-
Near syncope correlate to phase 4 hb/chb:
This is a high risk situation.
ongoing episodes overnight with a ~13 sec pause, Temp wire placed emergently
feeling better
npo p md for PPM tomorrow
Echo first thing
hold bb
CP: trop negative, may be linked to above
BAV s/p Bio AVR/MVR in 2022
HTN
Dilated aortic root
HLD
Prostate CA
Critical care time spent with patient at the bedside developing a plan after reviewing date and reviewing plan with ED team, patient, and his 30 minutes.
Subjective;
feeling better but many questions regarding ppm
Data:
TTE 11/22/23:
Normal biventricular size and systolic function without regional wall motion
abnormality.
Well seated #29 mm Biggs mitral valve replacement with a mean gradient of 4
mmHg.
Well seated #27 mm Biggs bioprosthetic aortic valve replacement. The
peak/mean gradients across the valve are 19/12 mmHg.
Mildly dilated ascending aorta (4.3 cm)
Compared to previous echo 03/16/23, the pericardial effusion has resolved. The
ascending aorta was not measured on the prior study.
Physical Exam
Vital Signs/Labs
Vital Signs
Temp Pulse Resp BP Pulse Ox
98.0 F 94 20 135/82 99
03/18/25 11:01 03/18/25 11:01 03/18/25 11:01 03/18/25 10:00 03/18/25 11:01
03/17/25 03/18/25 03/19/25
06:59 06:59 06:59
Actual Weight 198 lb 6.656 oz
03/18/25 04:17
03/18/25 04:17
Magnesium 2.1 mg/dl (1.6-2.3) 03/18/25 04:17
LAB Results
03/17/25
20:29
Troponin I < 0.012
Physical Exam
Constitutional: No acute distress
Cardiovascular: Rhythm & rate is regular, Pedal edema is absent, JVD pressure is normal and Systolic murmur absent
Respiratory: Respiratory effort normal, Lungs clear to auscul., Wheeze Absent and Crackles Absent
Neuro/Psych: AO x 3
Data Reviewed
-
Date of Service: March 18, 2025
EKG: Other (sinus with an episode of pacing around 8 am)
--- NOTE | 2025-03-18 14:58 | PTCARENOTE ---
Patient with serosanguineous drainage inside sleeve of temp wire sheath, leaking out. Dr. Gibson at bedside, evaluated patient's temp wire insertion site. Ok per Dr. Gibson. Will continue to maintain patient on bedrest and monitor site.
Patient verbalized understanding of bedrest, call biggs in reach. VSS, NSR with occasional PVCs on cardiac monitor technician.
--- NOTE | 2025-03-18 16:36 | TRANSFER ---
Patient transferred to [facility] without issues. Report called to SEO ENGINEER Marylou. Patient transferred with RFV temporary pacer wire, settings and groin site reviewed at bedside with receiving RN. VSS, NSR with occasional PVCs on electrical prospecting operator. Patient's
present for transfer, belongings and patient specific medications sent with patient.
--- NOTE | 2025-03-18 16:47 | PTCARENOTE ---
Pt received from [facility] ICU to ICU bed 3365. Sinus rhythm. Temp pacer settings HR 40, mA 20, sensitivity 0.8 via R groin. Assessment per charting.
--- NOTE | 2025-03-18 20:00 | PTCARENOTE ---
Rec'd pt resting in bed, denies pain, aware to keep Rleg str due to temp pacer, cooperative, SR w/ 1' AV block, occas pvc, + pulses, skin warm/dry, R fem temp pacer- Rate 40/ MA 20, sm amt blood inside sheath- MD previous shift aware, RA, lungs
clear ,sat 96, + bowel sounds, no bm, abd soft, no n/v, voiding yellow urine
[2025-03-19] VITALS (29 sets, daily range): BP systolic 97–129; BP diastolic 69–97; BMI 26.8
--- NOTE | 2025-03-19 00:16 | PTCARENOTE ---
Addendum entered by Joellen Perez RN 03/19/25 00:17:
NPO for pacer in am
Original Note:
sys reviewed, changes noted, CHG bath done, linens changed
--- NOTE | 2025-03-19 03:58 | PTCARENOTE ---
no changes in assessment
[2025-03-19 04:10] LABS: Hematocrit 40.3 % (39.0-52.0); Hemoglobin 13.8 g/dL (13.0-18.0); Mean Corp Hgb Conc. 34.2 g/dL (33.0-37.0); Mean Corpuscular Hgb 30.2 pg (27.0-31.0); Mean Corpuscular Volume 88.2 fL (80.0-94.0); Mean Platelet Volume 10.4 fL (7.4-10.4); Platelet Count 108 10^3/uL (130-400); Red Blood Cell Count 4.57 10^6/uL (4.70-6.10); Red Cell Dist. Width 13.2 % (11.5-14.5); White Blood Cell Count 5.9 10^3/uL (4.8-10.8)
[2025-03-19 04:19] LABS: INR 1.06; PT 14.1 Sec (11.4-14.6)
[2025-03-19 04:20] LABS: APTT 26.8 Sec (23.4-35.0)
[2025-03-19 04:49] LABS: Blood Urea Nitrogen 20 mg/dl (9-20); Calcium 8.7 mg/dl (8.4-10.2); Carbon Dioxide 24 mmol/L (22-30); Chloride 110 mmol/L (98-107); Estimated Creatinine Clearance 63 ml/min; Glucose 101 mg/dl (70-99); Phosphorus 3.5 mg/dl (2.5-4.5); Potassium 4.1 mmol/L (3.5-5.1); Sodium 139 mmol/L (135-145); eGFR > 60.00
--- NOTE | 2025-03-19 07:44 | W.PN.CD ---
Today's Communication / Plan
-
- PPM today
Impression / Plan
-
Near syncope correlate to phase 4 hb/chb:
This is a high risk situation.
ongoing episodes overnight with a ~13 sec pause, Temp wire placed emergently
feeling better
hold bb
PPM today
Temp pacemaker in place from right femoral vein.
Oozing some blood from jack cordis.
Plan for permanent PPM and removal of the cordis.
CP: trop negative, may be linked to above
BAV s/p Bio AVR/MVR in 2022
HTN
Dilated aortic root
HLD
Prostate CA
The procedure explained in detail. Consent obtained
Subjective;
feeling better but many questions regarding ppm.
Data:
TTE 11/22/23:
Normal biventricular size and systolic function without regional wall motion
abnormality.
Well seated #29 mm Biggs mitral valve replacement with a mean gradient of 4
mmHg.
Well seated #27 mm Biggs bioprosthetic aortic valve replacement. The
peak/mean gradients across the valve are 19/12 mmHg.
Mildly dilated ascending aorta (4.3 cm)
Compared to previous echo 03/16/23, the pericardial effusion has resolved. The
ascending aorta was not measured on the prior study.
Physical Exam
Vital Signs/Labs
Vital Signs
Temp Pulse Resp BP Pulse Ox
98.1 F 65 20 112/84 93
03/19/25 07:21 03/19/25 07:00 03/19/25 07:00 03/19/25 07:00 03/19/25 07:00
03/18/25 03/19/25 03/20/25
06:59 06:59 06:59
Actual Weight 90 kg 87.2 kg
03/19/25 03:48
03/19/25 03:48
PT 14.1 Sec (11.4-14.6) 03/19/25 03:48
INR 1.06 03/19/25 03:48
APTT 26.8 Sec (23.4-35.0) 03/19/25 03:48
Magnesium 2.0 mg/dl (1.6-2.3) 03/19/25 03:48
LAB Results
03/17/25
20:29
Troponin I < 0.012
Physical Exam
Constitutional: No acute distress and Comfortable
EENT: Anicteric and Moist mucous membranes
Cardiovascular: Rhythm & rate is regular, Pedal edema is absent and JVD pressure is normal
Respiratory: Respiratory effort normal, Lungs clear to auscul. and Wheeze Absent
GI: Soft, Normal bowel sounds and Distention present
Neuro/Psych: Alert, Oriented and AO x 3
Other: Cath Site and Cardiac Device Site
Data Reviewed
-
Date of Service: March 19, 2025
Medical Decision Making: Reviewed Test Results, Test Interpretation and Review of Case with other Provider
EKG: Tracing Personally Visualized and interpreted
Echo: Report Reviewed by me
X-Ray/CT/US/MRI/NUC/PET: Image Personally Visualized and interpreted
Medical Tests (PFT, Pathology etc): Image Personally Visualized and interpreted
Labs: Labs Reviewed by me
Old Records: Reviewed
Critical Care Time (in minutes): 35
--- NOTE | 2025-03-19 08:00 | PTCARENOTE ---
Patient received lying in bed, awake, alert and oriented. See clinical lab specialist documented on worklist flowsheet. SR with 1st degree AVB on CM, occasional PVC noted. S1S2 regular with positive click. Denies CP, SOB, N/V. BBS clear. Right groin sheath
and cordis in place with old sanguinous drainage on dressing. KVO NS via cordis. Temporary pacer wire to VVI pacer, Rate 40 and mA 20. No paced beats noted, no pauses. Good pedal pulse on right, weaker but palpable pedal pulse on left. No edema.
C/o mild right hip discomfort but declines offer of Tylenol. NPO for pending pacemaker placement today. Refuses po meds this am until after procedure. Bed in low and in locked position, call biggs within reach.
[2025-03-19] MEDS: THERAGRAN PO (08:09)
--- NOTE | 2025-03-19 12:05 | CON.INTV ---
Addendum entered and electronically signed by Deejay Vick MD 03/19/25 20:37:
Patient transferring out of ICU, after pacemaker placement.
Supervisor Welding Equipment Repairer service will sign off, please call as needed.
Original Note:
Consultation
Consultation Request
Date/Time Consultation Requested: 03/18/2025
Date/Time Consultation Performed: 03/19/2025
Requesting Provider: Doretha Prieto
Performing Provider: Deejay Vick
Reason for Consultation: Heart block
Medical History
-
Chief Complaint: Dizziness
History of Present Illness:
Patient is a very pleasant 69-year-old gentleman with known history of aortic and mitral valve replacement with bioprosthetic valves (11/2022), hypertension, hyperlipidemia, M�ni�re's disease, endocarditis, history of prostate cancer status
postsurgery and radiation, who presented to the hospital with dizziness and near syncope. Patient has had multiple episodes of dizziness. Workup including EKG, telemetry was concerning for intermittent complete heart block. Patient also had
multiple sinus pauses of 6 seconds seconds and then later 13 seconds. Patient was evaluated by cardiology service and had temporary pacemaker placement on 03/18. Backup rate was set at 40. Patient was admitted to the ICU for close monitoring.
Supervisor Welding Equipment Repairer consult was requested for further input.
Past Medical History
Past Medical History: Reports Other (aortic valve replacement, mitral valve replacement, CAD, hypertension, hyperlipidemia, migraines, M�ni�re's disease, endocarditis, prostate cancer status post radical perineal prostatectomy with radiation,
hemorrhoids status post hemorrhoidectomy,)
Past Surgical History: Reports Other (Radical perineal prostatectomy, aortic valve replacement, mitral valve replacement, hemorrhoidectomy)
Social History
Tobacco: Non-smoker
Alcohol: None
Drug: None
Family History
Family History: Not pertinent
Allergies / Home Medications
Allergies / Home Medications
Allergies
Allergy/AdvReac Type Severity Reaction Status Date / Time
lisinopril Allergy dizziness Verified 03/18/25 08:25
Home Medications
�Medication �Instructions �Recorded �Confirmed �Last Taken �Type
aspirin 81 mg chewable tablet 81 mg PO Q48H Blood clot 01/18/18 03/18/25 03/17/25 History
prevention/tx
atorvastatin 10 mg tablet 20 mg PO Q48H High cholesterol 01/18/18 03/18/25 03/16/25 History
cranberry fruit 450 mg tablet 450 mg PO DAILY Supplement 10/28/22 03/18/25 03/17/25 History
(cranberry)
vitamin B complex 1 cap PO DAILY Supplement 10/28/22 03/18/25 03/17/25 History
famotidine 20 mg tablet (Pepcid) 20 mg PO DAILYPRN PRN GERD 05/24/24 03/18/25 03/17/25 History
fluticasone propionate 50 2 spray intranasal HS Allergies 05/24/24 03/18/25 03/17/25 History
mcg/actuation nasal
spray,suspension
meclizine 12.5 mg tablet 12.5 mg PO TIDPRN PRN migraine 05/24/24 03/18/25 Unknown History
metoprolol succinate 25 mg 25 mg PO DAILY Blood Pressure 05/24/24 03/18/25 03/17/25 History
tablet,extended release 24 hr
multivit with 1 tab PO DAILY Supplement 05/24/24 03/18/25 03/17/25 History
rog-uihv-OV-#[id number] 18 mg
iron-800 mcg-150 mg tablet
(Vitamin D3 Complete)
sumatriptan succinate 100 mg tablet 100 mg PO DAILYPRN PRN migraine 05/24/24 03/18/25 Unknown History
therapeutic multivitamin 1 tab PO DAILY Supplement 05/24/24 03/18/25 05/23/24 History
triamterene 37.5 1 cap PO DAILY Blood Pressure 05/24/24 03/18/25 03/15/25 History
mg-hydrochlorothiazide 25 mg
capsule
Review of Systems
-
Hematologic/Lymphatic: Other (All 14 systems reviewed and negative except as stated above in the history of present illness.)
Vitals / Labs / Diagnostic Testing
Vital Signs
Temp Pulse Resp BP Pulse Ox
98.8 F 65 9 117/85 98
03/19/25 11:17 03/19/25 10:00 03/19/25 10:00 03/19/25 10:00 03/19/25 10:00
Lab Data
03/19/25 03:48
03/19/25 03:48
Laboratory Results
03/19/25
03:48
PT 14.1
INR 1.06
APTT 26.8
Diagnostic Testing:
Physical Exam
-
HEENT: Normocephalic
Cardiovascular: S1/S2
Respiratory: Clear
GI: Soft and Non Distended
Neurology: Awake and Alert
Skin: Warm
General: Comfortable
Assessment
-
#1. Dizziness/near syncope with intermittent heart block, prolonged pauses.
- Beta-valeriano has been discontinued
- S/p temporary pacer placement, 03/18. Backup rate set at 40. Currently not paced on monitor
- Cardiology service on case, anticipate permanent pacemaker placement today
- Patient currently in normal sinus rhythm, hemodynamically stable. Saturating well on room air. Not on any pressor support.
- Hold hydrochlorothiazide/triamterene
- Continue telemetry monitoring
#2. History of bioprosthetic aortic and mitral valve replacement in 2022.
- Echocardiogram about a year ago showed well-seated valves.
- Clinically no sign or symptom of heart failure
Other medical diagnoses:
- Hypertension, hyperlipidemia
- History of M�ni�re's disease, currently asymptomatic
- History of endocarditis
- History of prostate cancer status post prostatectomy and radiation
DVT prophylaxis with subcu heparin
Critical Care time 62 mins -- The patient is admitted for acute critical illness for the treatment of vital organ failure and/or prevention of further life-threatening conditions. Total care includes time spent in review of history, physical exam,
medications, hemodynamic/ventilator parameters, laboratory data, imaging and discussion with house staff, pharmacy, respiratory therapy, sheep and wheat farmer, and nursing.
Data:
CXR 03/2025: 1. Transvenous cardiac pacemaker wire terminating in the right ventricle.
2. Previous aortic and mitral valve replacement.
3. Normal heart size without evidence for acute pulmonary edema.
4. Mild elevation of the right hemidiaphragm.
Temporary pacer placement 03/2025. Via Right Femoral vein
ECHO 11/2023: Normal biventricular size and systolic function without regional wall motion
abnormality.
Well seated #29 mm Biggs mitral valve replacement with a mean gradient of 4
mmHg.
Well seated #27 mm Biggs bioprosthetic aortic valve replacement. The
peak/mean gradients across the valve are 19/12 mmHg.
Mildly dilated ascending aorta (4.3 cm)
Compared to previous echo 03/16/23, the pericardial effusion has resolved. The
ascending aorta was not measured on the prior study.
LHC & RHC 10/2022: 1. Right dominant circulation with a 20% to 30% lesion in the proximal LAD, but otherwise no significant coronary artery disease.
2. Normal filling pressures (LVEDP = 9 mmHg at 98.0 kg).
3. Possible arteria lusoria.
4. Severe, multi valvular disease by echocardiogram.
--- NOTE | 2025-03-19 12:20 | PTCARENOTE ---
Report given to tin can laborer RN. Drafting Engineer at bedside to obtain consent for procedure. No change in patient assessment except right femoral sheath with clear liquid drainage in sleeve. aware. VSS.
--- NOTE | 2025-03-19 12:55 | PTCARENOTE ---
Patient transferred to analyst microbiology lab on portable monitor accompanied by RN x2.
--- NOTE | 2025-03-19 13:54 | W.PN.HOSP.TC ---
Today's Communication/Plan
-
Pending PPM and 2D echocardiogram. Cardiology following
Assessment / Plan
Assessment / Plan
NAD
Scleral Anicteric
MMM
No JVD
CTABL
RRR, S1/S2
Soft, NT, ND, BS+
TVP in right groin
Warm, Dry
AAOx3
Calm
Complete heart block -transvenous pacer placed early this morning. Hold Toprol-XL. N.p.o. for pacemaker placement tomorrow.
Near syncope due to heart block.
Chest pressure -suspect due to heart block, bradycardia. Troponin negative. Chest pressure resolved.
History of [place] valve endocarditis -2022. Requiring bioprosthetic AVR, MVR.
CAD -stable.
Essential hypertension -stable.
M�ni�re's disease
Migraine headaches
Hx prostate cancer -radical perineal prostatectomy, radiation.
Full code
Anticipated Discharge: 24 - 48 hours
Subjective/Interval History
-
Date of Service: March 19, 2025
Seen and examined. No new complaints. No acute overnight events.
Wants to be able to move his leg however cannot due to TVP in the right groin
Objective Data
-
Labs:
Laboratory Results
03/19/25
03:48
WBC 5.9
Hgb 13.8
Hct 40.3
Plt Count 108 L
PT 14.1
INR 1.06
APTT 26.8
Sodium 139
Potassium 4.1
Chloride 110 H
Carbon Dioxide 24
BUN 20
Creatinine 1.2
Glucose 101 H
Calcium 8.7
Vital Signs:
Vital Signs
Temp Pulse Resp BP Pulse Ox
98.8 F 74 14 122/94 97
03/19/25 11:17 03/19/25 13:00 03/19/25 13:00 03/19/25 13:00 03/19/25 13:00
I&O
03/18/25 03/19/25 03/20/25
06:59 06:59 06:59
Intake Total 240 / 240 750 / 760 60 / 60
Output Total 905 / 905 1950 / 1950 475 / 475
Balance -665 / -665 -1200 / -1190 -415 / -415
--- NOTE | 2025-03-19 14:25 | ITS.CL.PACE ---
[facility] - Pacemaker Implant
Pacemaker Implant
Procedure Report:
Conduction system pacing Permanent Pacemaker Placement:
Mr. 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
dyslipidemia, prior prostate cancer (s/p surgery and radiation), Meniere's (on dyazide) with presyncope and is noted to have recurrent transient AV block with up to 13 second pause s/p temporary pacer wire placement via right femoral vein during his
stay in the hospital is recommended a pacemaker.
Indications:
Advanced AV block and symptomatic bradycardia
Date of the Procedure:
03/19/25
Pre-Operative Diagnosis: Transient recurrent complete AV block with presyncope
Post-Operative Diagnosis: Transient recurrent complete AV block with presyncope
Procedure Performed: Conduction system pacing permanent pacemaker
Surgeon:
Shelia Obrien MD
Anesthesia:
See anesthesia records
Detailed Description of the Procedure:
The patient was identified using hospital identification and informed consent obtained for the procedure. The risks were explained to the patient and the family including, but not limited to: Bleeding, infection, arrhythmia, stroke,
vascular/cardiac/lung puncture, surgery, pacemaker dependency/device malfunction. All questions were answered.
A surgical pause was performed in accordance with hospital regulations. Anesthesia service provided sedation as reported separately. Antibiotics administered IV for risk of bacterial colonization. After obtaining informed and written consent, the
patient was brought to the electrophysiology laboratory.
The initial rhythm was sinus with intermittent Mobitz II rhythm.
The procedure site was meticulously prepared with surgical scrub and allowed to dry with no pooling. Sterile draping was applied to cover the procedure site. The image intensifier was draped with sterile bag and positioned over the patient.
A surgical pause and time out was performed immediately prior to the procedure with review of her medical history, recent labs, allergies and medications with site of procedure identified and consent noted in the chart. Antibiotics pre operatively
given. All team members concurred.
The left infraclavicular region was prepped and draped in the usual sterile fashion. Local anesthesia was administered subcutaneously using 1% lidocaine / Bupivacaine. The left cephalic vein cutdown was performed with an incision at the
delto-pectoral groove, and vascular sheath was introduced for lead access.
A subcutaneous pocket was created with blunt dissection and use of electrocautery. Hemostasis was excellent.
First a regular RV pacing wire 5076 pacing wire was placed in the RV septal tissue that showed high impedance and high threshold and multiple locations were tested with high thresholds and high impedance. Decision was made to proceed to conduction
system pacing.
The guide wire was advanced to the RA and was advanced to the RV. The preformed curved long hemostatic peel away HIS sheath was advanced into the RV cavity. A left bundle pacing wire was advanced into the sheath to the tip with ventricular signals
noted with unipolar manner. The HIS location was identified under guidance of the flouroscopy and the pacing wire signals. The sheath with the pacing lead was moved deeper into the RV cavity on the septum at a more inferior and distal to the HIS
signals.
Once adequate signals were noted on the electrograms of the pacing lead in the sheath with W pattern signals on the RV septum, the lead was advanced and clockwise turns were done under fluoroscopic guidance. The septum was engaged and the lead was
paced intermittently after every 2-3 turns. The ventricular capture was monitored throughout and the captures gradually changed from RV pacing to non-selective pacing to LBB pacing with small R wave on V1 yet wide qrs complex morphology that was so
far better than the previous tested. �
The long guiding sheath was cut and removed from the RV without change in lead position, impedance, sensing, or capture. The lead was sutured to the underlying pectoralis fascia with 2-0 Ethibond stitches.
Then the attention was given to atrial lead and an atrial lead was placed in the RAA and was deployed using active fixation. There was excellent sensing and threshold noted. There was good injury on the atrial lead.
The leads were sutured to the underlying pectoralis fascia with 2-0 Ethibond stitches.
The lead was attached to the pulse generator in standard configuration with acceptable sensing and threshold parameters. The pocket was irrigated with antibiotic solution; the pocket was inspected with no active bleeding noted. The device and the
leads were placed in the pocket.
Deep subcutaneous tissues were closed with 2-3 layers of 2-0 VLOC sutures and the dermis was reopposed using a running 4-0 V Monocryl subcuticular suture.
A pressure dressing was applied. Sponge counts / sharp counts were appropriate.
Procedure End:
The procedure was tolerated well. Aquacel bandaged was applied. A pressure dressing was applied.
Estimated Blood loss:
5 cc
Specimens Removed:
No cultures and no specimens were obtained. No intraoperative pathology was identified.
Urine output:
None
Packs / Drains/ Tubes:
None
Instrument / Sponge Count Correct:
Yes
Flouro time:
5.4min / 14.3mGy
Complications of the Procedure:
None
Condition of Patient at Time of Transfer:
Hemodynamically stable with no neurological or vascular compromise.
Device information:�
Generator: Adbongo; Model: [id number]; Serial # [id number]�
����������� Right atrial pacing lead: Adbongo; Model: 5076-52; Serial # [id number]
����������� Measured data on the RA lead was sensing of 2.8 mV, impedance of 532 ohms and threshold of 0.25 V at 0.4ms�
����������� RV LBB pacing lead: Medtronic; Model: 3830-69; Serial # [id number]
����������� Measured data on the RV lead was sensing of 7.5 mV, impedance of 988 ohms and threshold of 0.5 V at 0.4ms�
PROGRAMMING PARAMETERS:�
Mikey parameter settings were AAIR <=> DDDR 60-130 bpm �
����������� Paced AV interval: 180ms
����������� Sensed AV interval: 150 ms.
����������� Rate Adaptive A-V Interval: on
����������� Mode switch ON
�
Summary:
Successful implantation of MRI compatible conduction system pacing permanent pacemaker.
Results/Recommendations:
-Please follow up CXR�
1. Please provide patient with adequate pain control�
Instructions to be given to patient:�
- Please follow up with [facility] at [address] [place] [address] ([phone]) to get your wound checked in 2 weeks of your discharge. Then follow with
- Do not wet incision site until after it is evaluated at cardiology clinic. No baths or showers until then. Sponge baths / showers are OK but dab dry the dressing after it is wet.�
- Allow 'steri strips' to fall off on their own�
- Do not lift left elbow above shoulder, particularly with sudden jerking movements, for 1 month�
- Do not lift anything weighing more than 5 pounds with the left arm for 1 month�
- If you notice any fevers, shortness of breath, lightheadedness, chest pain, or worsening swelling in the wound site, please contact the arrhythmia clinic, contact your product marketing intern, or present to the hospital for evaluation.�
Shelia Obrien MD
Electrophysiology
--- NOTE | 2025-03-19 14:55 | PTCARENOTE ---
Addendum entered by Amaya Angel RN 03/19/25 15:20:
Will remain on bedrest for one hour--off bedrest at 1600. Drowsy. Sats 88% on RA, placed on 2L/nc until more awake.
Original Note:
Patient returned from quality assurance/r&d lab technician s/p PPM placement. Alert and oriented. Denies pain. Left upper chest pressure dressing CDI. Right groin dressing CDI, site soft without evidence of hematoma. 100% Apaced on CM with occasional PVCs, HR 60BPM. Sats 97%
on RA. VSS. Left arm soft immobilizer in place. EKG done. Radiology notified so CXR may be performed.
--- NOTE | 2025-03-19 14:59 | CM ---
Initial assessment completed with patient with in room. Patient lives with his and son in a 2 story home plus basement with 2 steps to enter, B/B on , /2 B on . MEDICAL REVIEWER patient was independent in ADL's and ambulation, does drive,
retired, no DME, no in-home services. Does not have HC-POA, no service. PCP is Dr. Queta Haines and Pharmacy is [facility] in [place]. Discharge POC: Anticipate no needs.
--- NOTE | 2025-03-19 16:30 | PTCARENOTE ---
No change in patient's physical assessment. Neurovascular check RLE intact. Left chest dressing CDI with left arm sling in place. Left arm neurovascularly intact. VSS.
[2025-03-19] MEDS: DYAZIDE PO (16:45)
[2025-03-19] MEDS: HEPARIN SC (16:45)
--- NOTE | 2025-03-19 18:00 | PTCARENOTE ---
Addendum entered by Amaya Angel RN 03/19/25 18:34:
Report called verbally
Original Note:
Attempt to call report to 4E RN for patient to be transferred to a clean bed 401-2. Nurse not available for report. Report sheet completed and tubed to the floor.
--- NOTE | 2025-03-19 18:14 | PTCARENOTE ---
Report called verbally to Shelby MERCADO on 4E. Patient belongings gathered. Wearing eyeglasses and cell phone sent. Patient accompanying patient with rest of belongings. Patient transported via wheelchair with portable monitor accompanied by PCT.
Patient is stable.
[2025-03-19] MEDS: HEPARIN 5000 UNITS SC (20:28)
[2025-03-19] MEDS: ANCEF 5 IV (22:14)
[2025-03-20 03:33] VITALS: BP 123/83
[2025-03-20] MEDS: ANCEF 5 IV (04:22)
[2025-03-20 07:30] VITALS: BP 143/83
[2025-03-20 07:52] LABS: Hematocrit 42.1 % (39.0-52.0); Hemoglobin 14.4 g/dL (13.0-18.0); Mean Corp Hgb Conc. 34.2 g/dL (33.0-37.0); Mean Corpuscular Hgb 30.2 pg (27.0-31.0); Mean Corpuscular Volume 88.3 fL (80.0-94.0); Mean Platelet Volume 10.8 fL (7.4-10.4); Platelet Count 112 10^3/uL (130-400); Red Blood Cell Count 4.77 10^6/uL (4.70-6.10); White Blood Cell Count 9.8 10^3/uL (4.8-10.8)
[2025-03-20] MEDS: LOW STRENGTH ASPIRIN 81 MG PO (08:11)
[2025-03-20] MEDS: HEPARIN 5000 UNITS SC (08:11)
[2025-03-20] MEDS: LIPITOR 20 MG PO (08:11)
[2025-03-20] MEDS: THERAGRAN 1 TABLET PO (08:11)
[2025-03-20] MEDS: DYAZIDE 1 CAPSULE PO (08:11)
[2025-03-20 08:40] LABS: Blood Urea Nitrogen 21 mg/dl (9-20); Calcium 8.8 mg/dl (8.4-10.2); Carbon Dioxide 23 mmol/L (22-30); Chloride 107 mmol/L (98-107); Estimated Creatinine Clearance 68 ml/min; Glucose 89 mg/dl (70-99); Potassium 3.7 mmol/L (3.5-5.1); Sodium 139 mmol/L (135-145); eGFR > 60.00
[2025-03-20 11:03] VITALS: BP 130/88
--- NOTE | 2025-03-20 14:49 | W.PN.HOSP.TC ---
Today's Communication/Plan
-
Discharge home
More than 30 minutes spent in discharge including
Final examination of the patient
Summarizing hospital stay
Instructions for continuing care to all relevant caregivers
Preparation of discharge records, prescriptions, and referral forms
Total time spent (in minutes): 33mins
Assessment / Plan
Assessment / Plan
NAD
Scleral Anicteric
MMM
No JVD
CTABL
RRR, S1/S2
Soft, NT, ND, BS+
No hematoma at right groin, TVP removed
Warm, Dry
AAOx3
Calm
Complete heart block
S/p PPM on 03/19/2025, TVP removed
Per cardiology can resume beta-blockade
Outpatient cardiology follow-up
Chest pressure -suspect due to heart block, bradycardia. Troponin negative. Chest pressure resolved.
History of [place] valve endocarditis -2022. Requiring bioprosthetic AVR, MVR.
CAD -stable.
Essential hypertension -stable.
M�ni�re's disease
Migraine headaches
Hx prostate cancer -radical perineal prostatectomy, radiation.
Full code
Anticipated Discharge: Today
Subjective/Interval History
-
Date of Service: March 20, 2025
Seen and examined. S/p PPM. No new complaints. No dizziness.
Objective Data
-
Labs:
Laboratory Results
03/20/25
05:51
WBC 9.8
Hgb 14.4
Hct 42.1
Plt Count 112 L
Sodium 139
Potassium 3.7
Chloride 107
Carbon Dioxide 23
BUN 21 H
Creatinine 1.1
Glucose 89
Calcium 8.8
Vital Signs:
Vital Signs
Temp Pulse Resp BP Pulse Ox
98.1 F 70 18 130/88 97
03/20/25 11:03 03/20/25 11:03 03/20/25 11:03 03/20/25 11:03 03/20/25 11:03
I&O
03/19/25 03/20/25 03/21/25
06:59 06:59 06:59
Intake Total 750 / 760 800 / 800
Output Total 1950 / 1950 475 / 475
Balance -1200 / -1190 325 / 325
--- NOTE | 2025-03-20 14:50 | W.DCSUMMARY ---
Discharge Summary
Discharge Data
Date of Admission: 03/17/25
Date of Discharge: 03/20/25
-
Pending Results: No
Hospital Course
69-year-old male past medical history of aortic valve replacement, mitral valve replacement, CAD, hypertension, hyperlipidemia, migraines, M�ni�re's disease, endocarditis, prostate cancer status post radical perineal prostatectomy with radiation,
hemorrhoids status post hemorrhoidectomy
Presented with dizziness/near syncope followed by chest discomfort that resolved on its own. EKG noted to have symptomatic intermittent heart block with a 67-second stretch of heart block with dropped QRS complexes corresponding with symptoms on
telemetry. Cardiology consulted recommended pacemaker <del>w</del>ith transvenous pacemaker placed into the right groin until a permanent pacemaker could be placed on 03/19/2025. Per cardiology can resume taking metoprolol succinate 25 mg daily once
home. Will need continued outpatient cardiology follow-up.
Discharge Plan
-
Patient Disposition: Home (Routine Discharge)
Discharge Diagnosis/Procedures: Heart block, s/p pacemaker implant
Diet: As tolerated
Activity: As tolerated
Driving Restrictions: No driving for 1 week
Activity Restrictions/Additional Instructions:
Presented with dizziness/near syncope followed by chest discomfort that resolved on its own. EKG noted to have symptomatic intermittent heart block with a 67-second stretch of heart block with dropped QRS complexes corresponding with symptoms on
telemetry. Cardiology consulted recommended pacemaker with transvenous pacemaker placed into the right groin until a permanent pacemaker could be placed on 03/19/2025. Per cardiology can resume taking metoprolol succinate 25 mg daily once home.
Will need continued outpatient cardiology follow-up.
Stand Alone Forms: DC Inst - Implanted Device
Referrals:
Heather[facility]- [facility] [Provider Group] - 03/26/25 1:20 pm
Referral Note: Post device incision check appointment with ROGELIO Milligan
Queta Haines MD [Family Provider, [facility]]
Prescriptions:
Continued
atorvastatin 10 MG tablet
20 mg PO Q48H
aspirin 81 MG tablet,chewable
81 mg PO Q48H
vitamin B complex Capsule
1 cap PO DAILY
cranberry 450 mg Tablet
450 mg PO DAILY
sumatriptan succinate 100 mg Tablet
100 mg PO DAILYPRN PRN (Reason: migraine)
meclizine 12.5 mg Tablet
12.5 mg PO TIDPRN PRN (Reason: migraine)
therapeutic multivitamin Tablet
1 tab PO DAILY
triamterene-hydrochlorothiazid 37.5-25 mg Capsule
1 cap PO DAILY
famotidine [Pepcid] 20 mg Tablet
20 mg PO DAILYPRN PRN (Reason: GERD)
Patient Comments:
05/24/24: According to patient, to take for 2 weeks, started on 05/19/24.
metoprolol succinate 25 mg Tablet Extended Release 24 Hr
25 mg PO DAILY
fluticasone propionate 50 mcg/actuation [place],Suspension
2 spray INTRANASAL HS
Vitamin D3 Complete 18 mg iron-800 mcg-150 mg Tablet
1 tab PO DAILY
Discharge Orders:
Discharge Patient (As Directed); Ordered 03/20/25
Ordered By: Kamlesh Hannah
Discharge Date and Time
Print Language: [place]
--- NOTE | 2025-03-20 15:07 | CM ---
MD entered order for discharge.
Spoke with pt and Aga in room.
He said he was ready for discharge.
IMM reviewed and signed on chart.
Offered VN he declined.
PLAN Home no needs
[2025-03-20 15:15] VITALS: BP 138/90
== END 2025-03-20 16:05 | disposition home or self-care (01) | DRG 244 ==
LOC: 4 EAST ACU 23:06
PROVIDERS: Emergency Medicine; Internal Medicine Cardiovascular Disease; Internal Medicine Interventional Cardiology; Nurse Practitioner; Nurse Practitioner Family; ADMITTING PHYSICIAN Hospitalist; ATTENDING PHYSICIAN Hospitalist; CONSULT PHYSICIAN Internal Medicine Cardiovascular Disease; EMERGENCY PHYSICIAN Emergency Medicine; FAMILY PHYSICIAN Family Medicine; OTHER PHYSICIAN Internal Medicine
PROC: 02HK3JZ Insertion of Pacemaker Lead into Right Ventricle, Percutaneous Approach (ICD-10-PCS; 2025-03-18)
PROC: 02H63JZ Insertion of Pacemaker Lead into Right Atrium, Percutaneous Approach (ICD-10-PCS; 2025-03-18)
PROC: 5A1223Z Performance of Cardiac Pacing, Continuous (ICD-10-PCS; 2025-03-18)
PROC: 0JH606Z Insertion of Pacemaker, Dual Chamber into Chest Subcutaneous Tissue and Fascia, Open Approach (ICD-10-PCS; 2025-03-19)
DX: I44.2 Atrioventricular block, complete (principal); I48.91 Unspecified atrial fibrillation; Z82.41 Family history of sudden cardiac death; Z82.3 Family history of stroke; I25.10 Atherosclerotic heart disease of native coronary artery without angina pectoris; Z79.82 Long term (current) use of aspirin; Z79.899 Other long term (current) drug therapy; I10 Essential (primary) hypertension; I49.5 Sick sinus syndrome; G43.909 Migraine, unspecified, not intractable, without status migrainosus
CPT/HCPCS: 33208; 33210; 71045; 80048; 80053; 83735; 84100; 84484; 85025; 85027; 85610; 85730; 93005; 99291; C1785; C1887; C1892; C1898

== ENCOUNTER → 2025-06-25 14:42 | Outpatient (REF) | payer MEDICARE, OTHER, SELFPAY | LOC: HWRCS 14:42 | PROVIDERS: ATTENDING PHYSICIAN Nurse Practitioner Acute Care; FAMILY PHYSICIAN Family Medicine | DX: Z95.2 Presence of prosthetic heart valve (principal) | CPT/HCPCS: 93306 ==